=== PATIENT | female | born 1980 | race Caucasian/White ===

== ENCOUNTER 2021-03-27 14:00 | Emergency (ER) | payer OTHER ==
[~2021-03-27] VITALS: Ht 167.6 cm; Wt 106.6 kg
--- NOTE | ~2021-03-27 | EMS ---
[facility] [address] [place] [address] EMS Patient Care Report Name: FRANCIA FORD Room #: DEP VALENTÍN Jordan#: [id number] Admission: 03/27/21 Attend Phys: Discharge: 03/27/21 Date of : 82 Report #: [id number] THIS REPORT FOR: //name// Report Transmitted: 03/29/2021 08:03 EMS Care Summary [facility] MED-ACT Incident [id number] @ 03/27/2021 13:19 Incident Location [address] [address] Patient FRANCIA FORD Female, 41 Years 1980 Patient Address [address] [place] [address] Patient History Depression, Patient Allergies Narcotic agents allergy, Patient Medications Cipro, Venlafaxine, Doxycycline, Diclofenac, Chief Complaint "I'm having a reaction to my medicine" Disposition Transported No Lights/[place] Dispatch Reason Choking Transported To [facility] Narrative M1144 responds C1 to local [employer] store for report of possible choking pt. After unremarkable response phase, 1144 enter scene to find one pt seated in back office of the establishment. Pt is seated on the floor, very emotionally upset, diaphoretic, and breathing rapidly and deeply. Pt coworkers state that [facility] [address] [place] [address] EMS Patient Care Report Name: FRANCIA FORD Room #: DEP VALENTÍN Jordan#: [id number] Admission: 03/27/21 Attend Phys: Discharge: 03/27/21 Date of : 82 Report #: [id number] they found the pt on the floor of the establishment and believed she wasn't breathing. They then activate EMS at once. Pt states that she believes she is having a reaction to her recently prescribed ciprofloxacin. Pt states that she was recently treated for pneumonia and was placed on 250mg of Cipro BID for treatment. She states that she believes this was far too much medication and therefore believes that it has caused this reaction today. Pt speaks without stridor/hoarseness and initial physical exam finds the pt free of hives/urticaria to the neck, chest, or abdomen. Pt exhibits CBBS, speaks without difficulty, and has skin signs appropriate for ethnicity. Pt EtCO2 waveform is appropriate and pt is free of any other signs of systemic reaction, therefore Diphenhydramine and Neb treatments are withheld. Pt's reaction appears to be behavioral/emotional in nature as she is very tearful, hyperventilating, and kicking her arms and legs. She has transient periods of lucidity, but then shortly returns to saying things such as "I don't have kidney stones" or "I just need to relax my shoulders" when not asked and context is inappropriate for such comments. Pt is transported to [facility] which is not on high volume and pt care is transferred promptly to [facility] ED staff. 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,Surgical Mask on Patient,Response: Unchanged 13:18,Call Received 13:18,Psap Call 13:19,Dispatched 13:19,En Route [address] [address] EMS Patient Care Report Name: FRANCIA FORD Room #: [facility] VALENTÍN Jordan#: [id number] Admission: 03/27/21 Attend Phys: Discharge: 03/27/21 Date of : [birth year] Report #: [id number] 13:24,On Scene 13:26,At Patient 13:36,BP: 110/ M,PULSE: 123,RR: 50 R,SPO2: 99 Ox,ETCO2: ,B,PAIN: 0,GCS: 14, 13:38,BP: / M,PULSE: 162,RR: R,SPO2: Ox,ETCO2: 18 ,BG: ,PAIN: ,GCS: , 13:40,12-Lead ECG, 13:42,12-Lead ECG, 13:42,BP: / M,PULSE: 120,RR: R,SPO2: 97 Ox,ETCO2: 20 ,BG: ,PAIN: ,GCS: , 13:42,BP: 117/67 M,PULSE: 124,RR: 33 R,SPO2: 99 Ox,ETCO2: 18 ,BG: ,PAIN: ,GCS: , 13:42,BP: / M,PULSE: 189,RR: 36 R,SPO2: Ox,ETCO2: 17 ,BG: ,PAIN: ,GCS: , 13:46,Depart Scene 13:47,BP: / M,PULSE: 202,RR: 20 R,SPO2: 99 Ox,ETCO2: 18 ,BG: ,PAIN: ,GCS: , 13:57,At Destination 14:17,Call Closed Disclaimer v1.1 Copyright 2020 [employer] This EMS Care Summary contains data elements from the applicable legal record (which may be displayed differently). It is designed to provide pertinent information for the following purposes: continuity of care, clinical quality, and state data reporting. The complete legal record is available to ED staff and administrators of the receiving hospital in [facility]'s Patient Tracker. All data is provided "as is."
--- NOTE | ~2021-03-27 | EMS ---
[facility] [address] [place] [address] EMS Patient Care Report Name: FRANCIA FORD Room #: DEP VALENTÍN Jordan#: [id number] Admission: 03/27/21 Attend Phys: Discharge: 03/27/21 Date of : [birth year] Report #: [id number] THIS REPORT FOR: //name// Report Transmitted: 03/29/2021 09:31 EMS Care Summary [facility] MED-ACT Incident [id number] @ 03/27/2021 13:19 Incident Location [address] [address] Patient FRANCIA FORD Female, 41 Years 1980 Patient Address [address] [place] [address] Patient History Depression, Patient Allergies Narcotic agents allergy, Patient Medications Cipro, Venlafaxine, Doxycycline, Diclofenac, Chief Complaint "I'm having a reaction to my medicine" Disposition Transported No Lights/[place] Dispatch Reason Choking Transported To [facility] Narrative M1144 responds C1 to local [employer] store for report of possible choking pt. After unremarkable response phase, 1144 enter scene to find one pt seated in back office of the establishment. Pt is seated on the floor, very emotionally upset, diaphoretic, and breathing rapidly and deeply. Pt coworkers state that [facility] [address] [place] [address] EMS Patient Care Report Name: FRANCIA FORD Room #: DEP VALENTÍN Jordan#: [id number] Admission: 03/27/21 Attend Phys: Discharge: 03/27/21 Date of : [birth year] Report #: [id number] they found the pt on the floor of the establishment and believed she wasn't breathing. They then activate EMS at once. Pt states that she believes she is having a reaction to her recently prescribed ciprofloxacin. Pt states that she was recently treated for pneumonia and was placed on 250mg of Cipro BID for treatment. She states that she believes this was far too much medication and therefore believes that it has caused this reaction today. Pt speaks without stridor/hoarseness and initial physical exam finds the pt free of hives/urticaria to the neck, chest, or abdomen. Pt exhibits CBBS, speaks without difficulty, and has skin signs appropriate for ethnicity. Pt EtCO2 waveform is appropriate and pt is free of any other signs of systemic reaction, therefore Diphenhydramine and Neb treatments are withheld. Pt's reaction appears to be behavioral/emotional in nature as she is very tearful, hyperventilating, and kicking her arms and legs. She has transient periods of lucidity, but then shortly returns to saying things such as "I don't have kidney stones" or "I just need to relax my shoulders" when not asked and context is inappropriate for such comments. Pt is transported to [facility] hospital which is not on high volume and pt care is transferred promptly to [facility] ED staff. 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,Surgical Mask on Patient,Response: Unchanged 13:18,Call Received 13:18,Psap Call 13:19,Dispatched 13:19,En Route [address] [address] EMS Patient Care Report Name: FRANCIA FORD Room #: DEP VLAENTÍN Jordan#: [id number] Admission: 03/27/21 Attend Phys: Discharge: 03/27/21 Date of : 82 Report #: [id number] 13:24,On Scene 13:26,At Patient 13:36,BP: 110/ M,PULSE: 123,RR: 50 R,SPO2: 99 Ox,ETCO2: ,B,PAIN: 0,GCS: 14, 13:38,BP: / M,PULSE: 162,RR: R,SPO2: Ox,ETCO2: 18 ,BG: ,PAIN: ,GCS: , 13:40,12-Lead ECG, 13:42,12-Lead ECG, 13:42,BP: / M,PULSE: 120,RR: R,SPO2: 97 Ox,ETCO2: 20 ,BG: ,PAIN: ,GCS: , 13:42,BP: 117/67 M,PULSE: 124,RR: 33 R,SPO2: 99 Ox,ETCO2: 18 ,BG: ,PAIN: ,GCS: , 13:42,BP: / M,PULSE: 189,RR: 36 R,SPO2: Ox,ETCO2: 17 ,BG: ,PAIN: ,GCS: , 13:46,Depart Scene 13:47,BP: / M,PULSE: 202,RR: 20 R,SPO2: 99 Ox,ETCO2: 18 ,BG: ,PAIN: ,GCS: , 13:57,At Destination 14:17,Call Closed Disclaimer v1.1 Copyright 2020 [employer] This EMS Care Summary contains data elements from the applicable legal record (which may be displayed differently). It is designed to provide pertinent information for the following purposes: continuity of care, clinical quality, and state data reporting. The complete legal record is available to ED staff and administrators of the receiving hospital in [facility]'s Patient Tracker. All data is provided "as is."
[~2021-03-27 14:00] MED LIST: PRENATAL PO; PRENATAL TABLE1 EAC3 PO
[2021-03-27 14:29] LABS: ABSOLUTE NEUTROPHILS 7.7 thou/uL (1.4-8.2); BASOPHILS 0.8 % (0.0-2.0); EOSINOPHILS 0.7 % (0.0-3.0); HEMATOCRIT 36.6 % (37.0-47.0); HEMOGLOBIN 12.7 gm/dL (12.0-15.0); LYMPHOCYTES 23.7 % (24.0-44.0); MCH 29.6 pg (26.0-34.0); MCHC 34.7 g/dL (28.0-37.0); MCV 85.4 fL (80.0-100.0); MONOCYTES 3.7 % (1.0-8.0); PLATELET COUNT 317 thou/uL (150-400); POLYS 71.1 % (36.0-66.0); RBC 4.28 mil/uL (4.20-5.00); RDW 13.3 % (10.5-14.5); WBC 10.9 thou/uL (4.0-11.0)
[2021-03-27 14:35] LABS: CALCIUM 9.3 mg/dL (8.5-10.1)
[2021-03-27 14:41] LABS: ALBUMIN 3.8 g/dL (3.4-5.0); TOTAL BILIRUBIN 0.3 mg/dL (0.2-1.0); TOTAL PROTEIN 7.6 g/dL (6.4-8.2)
[2021-03-27] MEDS ORDERED: ZOFRAN ODT4 MG PO (16:59)
[2021-03-27 17:40] VITALS: BP 127/74
== END 2021-03-27 17:41 | disposition home or self-care (01) ==
LOC: ER 14:00
PROVIDERS: Emergency Medicine
DX: F41.9 Anxiety disorder, unspecified (principal); T36.8X5A Adverse effect of other systemic antibiotics, initial encounter; Y92.89 Other specified places as the place of occurrence of the external cause; Z88.1 Allergy status to other antibiotic agents